=== PATIENT | male | born 1945 ===

== ENCOUNTER 2017-02-25 08:25 | Inpatient (IN) | payer MEDICARE, OTHER ==
[~2017-02-25] VITALS: Ht 170.2 cm; Wt 52.0 kg
[2017-02-25 08:41] VITALS: BP 112/68; PULSE 87; RESP 14; TEMP 97.6; O2SAT 96
[2017-02-25] MEDS ORDERED: SODIUM CHLOR 0.9% 1000 ML INJ 1,000 ML IV SCH (08:43)
[2017-02-25] MEDS ORDERED: SODIUM CHLORIDE 0.9% FLUSH 10 ML FLUSH IVF PRN (08:45)
[2017-02-25 09:41] LABS: EOSINOPHIL # 0.1 TH/MM3 (0-0.4); EOSINOPHIL % 3.1 % (0.0-4.0); HEMO FLAGS DIFF FINAL; LYMPH % 37.4 % (9.0-44.0); LYMPHOCYTE # 1.5 TH/MM3 (1.0-4.8); MEAN CORPUSCULAR HEMOGLOBIN 32.2 PG (27.0-34.0); MEAN CORPUSCULAR HGB CONC 32.9 % (32.0-36.0); MONO % 8.8 % (0.0-8.0); NEUT % 49.7 % (16.0-70.0); PLATELET COUNT 140 TH/MM3 (150-450); RED BLOOD COUNT 4.08 MIL/MM3 (4.50-5.90); RED CELL DISTRIBUTION WIDTH 12.8 % (11.6-17.2); WHITE BLOOD COUNT 4.1 TH/MM3 (4.0-11.0)
[2017-02-25 09:49] LABS: APTT (PATIENT) 25.7 SEC (24.3-30.1); INTERNATIONAL NORMALIZED RATIO 1.1 RATIO; PROTHROMBIN TIME - PATIENT 12.7 SEC (9.8-11.6)
--- NOTE | 2017-02-25 09:52 | RADRPT ---
EXAM DATE/TIME: 02/25/2017 09:24 [facility] COMPARISON: No previous studies available for comparison. INDICATIONS : Altered mental status. RADIATION DOSE: 56.37 CTDIvol (mGy) MEDICAL HISTORY : Non-responsive. SURGICAL HISTORY : Non-responsive. ENCOUNTER: Initial ACUITY: 1 day PAIN SCALE: Non-responsive LOCATION: cranial TECHNIQUE: Multiple contiguous axial images were obtained of the head. Using automated exposure control and adj ustment of the mA and/or kV according to patient size, radiation dose was kept as low as reasonably a chievable to obtain optimal diagnostic quality images. FINDINGS: CEREBRUM: There is diffuse moderate to severe atrophic change with sulcal and ventricular prominence. Periventr icular white matter lucencies are noted.. No evidence of midline shift, mass lesion, hemorrhage or a cute infarction. No extra-axial fluid collections are seen. POSTERIOR FOSSA: The cerebellum and brainstem are intact. The 4th ventricle is midline. The cerebellopontine angle i s unremarkable. EXTRACRANIAL: The visualized portion of the orbits is intact. SKULL: The calvaria is intact. No evidence of skull fracture. CONCLUSION: 1. No acute hemorrhage or mass effect. 2. Atrophy and chronic small vessel ischemic change. Sherif Gentile MD on February 25, 2017 at 9:49 Board Certified Radiologist. This report was verified electronically.
[2017-02-25 09:58] LABS: ANION GAP 8 MEQ/L (5-15); AST (GOT) 41 U/L (15-37); BICARBONATE 32.2 MEQ/L (21.0-32.0); BLOOD UREA NITROGEN 28 MG/DL (7-18); CHLORIDE 114 MEQ/L (98-107); GLOMERULAR FILTRATION RATE 89 ML/MIN (>89); POTASSIUM 3.9 MEQ/L (3.5-5.1); SODIUM (NA) 154 MEQ/L (136-145)
[2017-02-25 10:03] LABS: ALKALINE PHOSPHATASE 77 U/L (45-117); ALT (GPT) 31 U/L (12-78); CREATINE KINASE 391 U/L (39-308); TOTAL BILIRUBIN ADULT 0.5 MG/DL (0.2-1.0)
[2017-02-25 10:09] LABS: BACTERIA, URINE MANY /hpf; BLOOD, URINE SMALL (NEG); GLUCOSE,URINE NEG (NEG); HYALINE CAST, URINE 83 /lpf (RARE); KETONE, URINE NEG (NEG); MUCUS URINE MANY /lpf (OCC)
[2017-02-25 10:10] LABS: COMMENT (UR) CATH-CULTURE IND; CULTURE IF INDICATED CATH CULTURE IND; NITRITE,URINE POS (NEG); URINE COLOR BROWN (YELLW/STRAW)
[2017-02-25 10:16] LABS: CKMB 0.6 NG/ML (0.5-3.6)
--- NOTE | 2017-02-25 10:28 | RADRPT ---
EXAM DATE/TIME: 02/25/2017 09:34 [facility] COMPARISON: No previous studies available for comparison. INDICATIONS : Syncope. MEDICAL HISTORY : non-responsive SURGICAL HISTORY : non-responsive ENCOUNTER: Initial ACUITY: 1 day PAIN SCORE: Non-responsive. LOCATION: Bilateral chest FINDINGS: Underinflated AP view of the chest demonstrates a normal-sized cardiac silhouette. Patient is rotated . No effusion, consolidation, or pneumothorax is identified. Bones and soft tissues demonstrate no ac aj finding. EKG lines overlie the patient. CONCLUSION: Underinflated and rotated examination without an acute finding identified. Chuck Etienne MD on February 25, 2017 at 10:24 Board Certified Radiologist. This report was verified electronically.
[2017-02-25] MEDS ORDERED: cefTRIAXone INJ 1,000 MG in SODIUM CHLORIDE 0.9% INJ 100 ML IV ONE (10:45)
[2017-02-25 10:46] VITALS: BP_SYST 137; BP_SYST 142; BP_DIAS 83; BP_DIAS 90; PULSE 109; PULSE 110; RESP 14; TEMP 97.8; O2SAT 99
[2017-02-25] MEDS: D5-1/4 NS + KCL 20 MEQ INJ 1,000 ML IV SCH ×2 (12:13→23:51)
--- NOTE | 2017-02-25 13:00 | PD ---
HPI Chief Complaint: Altered Mental Status Time Seen by Provider: 08:38 Travel History International Travel<30 days: No Contact w/Intl Traveler<30days: No Traveled to known affect area: No History of Present Illness HPI 72 y/o male presents with report of change in mental status. History is obtained by the ambulance team. Patient cannot give me any history and has garbled speech. PFSH Past Medical History Narrative Medical By records Depression: Yes Dementia: Yes Insomnia: Yes Tetanus Vaccination: < 5 Years Influenza Vaccination: Yes Past Surgical History Surgical History: Unable to Obtain Social History Narrative Social History By records Alcohol Use: No Tobacco Use: No Substance Use: No Allergies-Medications (Allergen,Severity, Reaction): Coded Allergies: No Known Allergies (Unverified , 02/25/17) UNOBTAINABLE (Unverified , 02/25/17) Review of Systems ROS Limitations: Altered Mental Status Physical Exam Exam Limitations: Altered Mental Status Narrative GENERAL: Thin male SKIN: Warm and dry. HEAD: Normocephalic EYES: No injection or drainage. ENT: No nasal drainage noted. NECK: Supple, trachea midline. CARDIOVASCULAR: Regular rate and rhythm RESPIRATORY: No increased effort. No accessory muscle use. GASTROINTESTINAL: Abdomen soft, nondistended. NEUROLOGICAL: Eyes open to speech, garbled speech, contracted extremities Data Data Last Documented VS Vital Signs Date Time Temp Pulse Resp B/P Pulse Ox O2 Delivery O2 Flow Rate FiO2 02/25/17 10:46 108 14 99 Room Air 02/25/17 10:46 137/83 02/25/17 10:46 97.8 Orders Electrocardiogram (02/25/17 08:43) Ammonia (02/25/17 08:43) Complete Blood Count With Diff (02/25/17 08:43) Comprehensive Metabolic Panel (02/25/17 08:43) Creatine Kinase (Cpk) (02/25/17 08:43) Prothrombin Time / Inr (Pt) (02/25/17 08:43) Act Partial Throm Time (Ptt) (02/25/17 08:43) Troponin I (02/25/17 08:43) Lactic Acid Sepsis Protocol (02/25/17 08:43) Urinalysis - C+S If Indicated (02/25/17 08:43) Blood Culture (02/25/17 08:43) Chest, Single Ap (02/25/17 08:43) Ct Brain W/O Iv Contrast(Rout) (02/25/17 08:43) Blood Glucose (02/25/17 08:43) Ecg Monitoring (02/25/17 08:43) Iv Access Insert/Monitor (02/25/17 08:43) Oximetry (02/25/17 08:43) Urinary Catheter Insert/Apply (02/25/17 08:43) Sodium Chloride 0.9% Flush (Ns Flush) (02/25/17 08:45) Sodium Chlor 0.9% 1000 Ml Inj (Ns 1000 M (02/25/17 08:43) Valproic Acid (Depakene) (02/25/17 08:43) CKMB (02/25/17 08:50) CKMB% (02/25/17 08:50) Urine Culture (02/25/17 09:15) Ceftriaxone Inj (Rocephin Inj) (02/25/17 10:45) D5-1/4 Ns + Kcl 20 Meq Inj (D5-1/4 Ns + (02/25/17 12:00) Admit Order (Ed Use Only) (02/25/17 11:12) Labs Laboratory Tests Test 02/25/17 02/25/17 08:50 09:15 White Blood Count 4.1 TH/MM3 Red Blood Count 4.08 MIL/MM3 Hemoglobin 13.2 GM/DL Hematocrit 40.0 % Mean Corpuscular Volume 98.0 FL Mean Corpuscular Hemoglobin 32.2 PG Mean Corpuscular Hemoglobin 32.9 % Concent Red Cell Distribution Width 12.8 % Platelet Count 140 TH/MM3 Mean Platelet Volume 7.9 FL Neutrophils (%) (Auto) 49.7 % Lymphocytes (%) (Auto) 37.4 % Monocytes (%) (Auto) 8.8 % Eosinophils (%) (Auto) 3.1 % Basophils (%) (Auto) 1.0 % Neutrophils # (Auto) 2.0 TH/MM3 Lymphocytes # (Auto) 1.5 TH/MM3 Monocytes # (Auto) 0.4 TH/MM3 Eosinophils # (Auto) 0.1 TH/MM3 Basophils # (Auto) 0.0 TH/MM3 CBC Comment DIFF FINAL Differential Comment Prothrombin Time 12.7 SEC Prothromb Time International 1.1 RATIO Ratio Activated Partial 25.7 SEC Thromboplast Time Sodium Level 154 MEQ/L Potassium Level 3.9 MEQ/L Chloride Level 114 MEQ/L Carbon Dioxide Level 32.2 MEQ/L Anion Gap 8 MEQ/L Blood Urea Nitrogen 28 MG/DL Creatinine 0.85 MG/DL Estimat Glomerular Filtration 89 ML/MIN Rate Random Glucose 85 MG/DL Lactic Acid Level 1.7 mmol/L Calcium Level 8.3 MG/DL Total Bilirubin 0.5 MG/DL Aspartate Amino Transf 41 U/L (AST/SGOT) Alanine Aminotransferase 31 U/L (ALT/SGPT) Alkaline Phosphatase 77 U/L Ammonia 13 MCMOL/L Total Creatine Kinase 391 U/L Creatine Kinase MB 0.6 NG/ML Creatine Kinase MB % 0.2 % Troponin I LESS THAN 0.02 NG/ML Total Protein 7.3 GM/DL Albumin 2.7 GM/DL Valproic Acid (Depakene) Level 47 MCG/ML Urine Color BROWN Urine Turbidity TURBID Urine pH 7.0 Urine Specific [place] 1.022 Urine Protein 100 mg/dL Urine Glucose (UA) NEG mg/dL Urine Ketones NEG mg/dL Urine Occult Blood SMALL Urine Nitrite POS Urine Bilirubin NEG Urine Urobilinogen LESS THAN 2.0 MG/DL Urine Leukocyte Esterase LARGE Urine RBC /hpf Urine WBC /hpf Urine WBC Clumps MANY Urine Bacteria MANY /hpf Urine Hyaline Casts 83 /lpf Urine Mucus MANY /lpf Microscopic Urinalysis Comment CATH-CULTURE IND MDM Medical Decision Making Medical Screen Exam Complete: Yes Emergency Medical Condition: Yes Medical Record Reviewed: Yes (limited shelter records reviewed) Interpretation(s) CBC & BMP Diagram 02/25/17 08:50 Last [address] 02/25/17 0843 Signed Impressions: Service Date/Time: Saturday, February 25, 2017 09:24 - CONCLUSION: 1. No acute hemorrhage or mass effect. 2. Atrophy and chronic small vessel ischemic change. Sherif Gentile MD Chest X-Ray 02/25/1743 Signed Impressions: Service Date/Time: Saturday, February 25, 2017 09:34 - CONCLUSION: Underinflated and rotated examination without an acute finding identified. Chuck Etienne MD UA with UTI Differential Diagnosis UTI, intracranial, electrolyte, renal failure Narrative Course Will check blood work, urinalysis, imaging and reevaluate ED workup with UTI without signs of sepsis. Patient will be admitted and given Rocephin Physician Communication Physician Communication dr eugene agrees to admit Diagnosis Primary Impression: Urinary tract infection Qualified Code: N39.0 - Urinary tract infection with hematuria, site unspecified Additional Impression: Altered mental status Qualified Code: R41.82 - Altered mental status, unspecified altered mental status type Admitting Information Admitting Physician Requests: Admit Minda Cárdenas MD Feb 25, 2017 13:00
[2017-02-25 13:20] VITALS: BP 115/82; PULSE 101; RESP 16; O2SAT 96
--- NOTE | 2017-02-25 13:22 | EKG ---
Date Performed: 02/25/2017 Time Performed: 10:44:14 PTAGE: 72 years EKG: Sinus rhythm LEFT AXIS DEVIATION LOW QRS VOLTAGE ABNORMAL ECG NO PREVIOUS TRACING DOCTOR: Rubio Garcia Interpretating Date/Time 02/25/2017 13:20:53
[2017-02-25 14:30] VITALS: BP 139/78; PULSE 100; RESP 22; TEMP 97.6; O2SAT 96
[2017-02-25] MEDS ORDERED: ONDANSETRON HCL 4 MG/2 ML VIAL IVP PRN (14:30)
[2017-02-25] MEDS ORDERED: SODIUM CHLORIDE 0.9% FLUSH 10 ML FLUSH IV FLUSH PRN (14:30)
[2017-02-25] MEDS ORDERED: NALOXONE HCL 0.4 MG/ML AMP IV PRN (14:30)
--- NOTE | 2017-02-25 15:12 | HHI.HP ---
HPI Service [facility]ists Primary Care Physician Unknown Admission Diagnosis uti, altered mental status Diagnoses: Chief Complaint: AMS, SOB Travel History International Travel<30 Days: No Contact w/Intl Traveler <30 Da: No Traveled to Known Affected Are: No History of Present Illness Patient is non responsive and non interactive. History obtained from the patient's son and SNF staff. Per his son, he has a history of multiple strokes and alcoholic dementia. Patient has been living in a SNF. Apparently he has been declining for the past few weeks. Has been mostly bedbound. He is contracted. SNF discussed hospice with the patient's family and discussions were ongoing. Patient was sent to the hospital for low oxygen saturation and worsening mental status per the SNF staff. On arrival he is found to have an abnormal urinalysis suggestive of a UTI and severe Hypernatremia. Review of Systems ROS Limitations: Clinical Condition Unable to obtain. Past Family Social History Past Medical History Multiple strokes with residual cognitive deficit, weakness, contractures Alcoholic dementia Past Surgical History Unable to obtain Reported Medications Nursing facility to fax med list Allergies: Coded Allergies: No Known Allergies (Unverified , 02/25/17) UNOBTAINABLE (Unverified , 02/25/17) Family History Unable to obtain Social History Patient had a stroke in 2010 and has been drinking heavily. He has been declining over the past 15 months. Physical Exam Vital Signs Vital Signs Date Time Temp Pulse Resp B/P Pulse Ox O2 Delivery O2 Flow Rate FiO2 02/25/17 13:20 101 16 115/82 96 Room Air 02/25/17 10:46 108 14 99 Room Air 02/25/17 10:46 109 14 137/83 99 Room Air 02/25/17 10:46 97.8 110 14 142/90 99 Room Air 02/25/17 08:41 97.6 87 14 112/68 96 Physical Exam GENERAL: Elderly male, contracted, non interactive, non responsive. Eyes open but does not track. Does not respond to her daughter in the room HEAD: Atraumatic. Normocephalic. EYES: Pupils equal round and reactive. No injection or drainage. ENT: Nose without drainage NECK: Trachea midline. CARDIOVASCULAR: Regular rate and rhythm without murmurs, gallops, or rubs. RESPIRATORY: Clear to auscultation anteriorly. Breath sounds equal bilaterally. No wheezes, rales, or rhonchi. GASTROINTESTINAL: Abdomen soft, nondistended. MUSCULOSKELETAL: Paramjit upper extremity contracted. NEUROLOGICAL: Awake but non interactive. Laboratory Laboratory Tests Test 02/25/17 02/25/17 08:50 09:15 White Blood Count 4.1 Red Blood Count 4.08 Hemoglobin 13.2 Hematocrit 40.0 Mean Corpuscular Volume 98.0 Mean Corpuscular Hemoglobin 32.2 Mean Corpuscular Hemoglobin 32.9 Concent Red Cell Distribution Width 12.8 Platelet Count 140 Mean Platelet Volume 7.9 Neutrophils (%) (Auto) 49.7 Lymphocytes (%) (Auto) 37.4 Monocytes (%) (Auto) 8.8 Eosinophils (%) (Auto) 3.1 Basophils (%) (Auto) 1.0 Neutrophils # (Auto) 2.0 Lymphocytes # (Auto) 1.5 Monocytes # (Auto) 0.4 Eosinophils # (Auto) 0.1 Basophils # (Auto) 0.0 CBC Comment DIFF FINAL Differential Comment Prothrombin Time 12.7 Prothromb Time International 1.1 Ratio Activated Partial 25.7 Thromboplast Time Sodium Level 154 Potassium Level 3.9 Chloride Level 114 Carbon Dioxide Level 32.2 Anion Gap 8 Blood Urea Nitrogen 28 Creatinine 0.85 Estimat Glomerular Filtration 89 Rate Random Glucose 85 Lactic Acid Level 1.7 Calcium Level 8.3 Total Bilirubin 0.5 Aspartate Amino Transf 41 (AST/SGOT) Alanine Aminotransferase 31 (ALT/SGPT) Alkaline Phosphatase 77 Ammonia 13 Total Creatine Kinase 391 Creatine Kinase MB 0.6 Creatine Kinase MB % 0.2 Troponin I LESS THAN 0.02 Total Protein 7.3 Albumin 2.7 Valproic Acid (Depakene) Level 47 Urine Color BROWN Urine Turbidity TURBID Urine pH 7.0 Urine Specific [place] 1.022 Urine Protein 100 Urine Glucose (UA) NEG Urine Ketones NEG Urine Occult Blood SMALL Urine Nitrite POS Urine Bilirubin NEG Urine Urobilinogen LESS THAN 2.0 Urine Leukocyte Esterase LARGE Urine RBC Urine WBC Urine WBC Clumps MANY Urine Bacteria MANY Urine Hyaline Casts 83 Urine Mucus MANY Microscopic Urinalysis Comment CATH-CULTURE IND Date/Time Procedure Status Source Growth 02/25/17 09:15 Urine Culture Received Urine Catheterized Urine Pending 02/25/17 09:10 Aerobic Blood Culture Received Blood Peripheral Pending 02/25/17 09:10 Anaerobic Blood Culture Received Blood Peripheral Pending Result Diagram: 02/25/17 0850 02/25/1750 Imaging Last Impressions Head CT 02/25/17842 Signed Impressions: Service Date/Time: Saturday, February 25, 2017 09:24 - CONCLUSION: 1. No acute hemorrhage or mass effect. 2. Atrophy and chronic small vessel ischemic change. Sherif Gentile MD Chest X-Ray 02/25/17842 Signed Impressions: Service Date/Time: Saturday, February 25, 2017 09:34 - CONCLUSION: Underinflated and rotated examination without an acute finding identified. Chuck Etienne MD Assessment and Plan Problem List: (1) Encephalopathy acute ICD Code: G93.40 Status: Acute (2) Hypernatremia ICD Code: E87.0 Status: Acute (3) Urinary tract infection ICD Code: N39.0 Status: Acute (4) Dementia ICD Code: F03.90 Status: Acute Assessment and Plan 72 Y/O with dementia, previous strokes, mostly bedbound sent from the SNF for worsening/declining mental status. I discussed with the patient's son at length. The patient has been declining at the SNF. They were discussing hospice. He is now non interactive with marked hypernatremia and probable UTI. I suspect he has end stage dementia. The family does not want to pursue aggressive measures/treatment at this time. They want hospice closer to [facility] so family can visit him. - IVF with D5 1/4 NS to help with hypernatremia. Repeat labs in AM - Continue Rocephin for UTI - Hospice consulted. Patient's son is the healthcare surrogate. Patient is DNR per family request Discussed code status, Hospice at length with the patient's family. Anticipate discharge to Hospice once arrangements are made. Code Status DNR Physician Certification 2 Midnight Certification Type: Admission for Inpatient Services Order for Inpatient Services The services are ordered in accordance with Medicare regulations or non- Medicare payer requirements, as applicable. In the case of services not specified as inpatient-only, they are appropriately provided as inpatient services in accordance with the 2-midnight benchmark. Estimated LOS (days): 2 days is the estimated time the patient will need to remain in the hospital, assuming treatment plan goals are met and no additional complications. Post-Hospital Plan: Not yet determined Problem Qualifiers (1) Urinary tract infection: Qualified Code: N39.0 - Urinary tract infection with hematuria, site unspecified Madeline Boyd MD Feb 25, 2017 15:12
[2017-02-25 20:53] VITALS: BP 101/65; PULSE 102; RESP 18; TEMP 98.5; O2SAT 94
[2017-02-25] MEDS: SODIUM CHLORIDE 0.9% FLUSH 10 ML FLUSH IV FLUSH SCH (23:51)
[2017-02-26] VITALS: BP 128/76; PULSE 111; RESP 18; TEMP 98.3; O2SAT 95
[2017-02-26] MEDS: D5-1/4 NS + KCL 20 MEQ INJ 1,000 ML IV SCH ×3 (06:06→21:22)
[2017-02-26 06:11] VITALS: BP 123/74; PULSE 95; RESP 21; TEMP 97.6; O2SAT 96
[2017-02-26] MEDS: SODIUM CHLORIDE 0.9% FLUSH 10 ML FLUSH IV FLUSH SCH ×2 (07:45→21:00)
[2017-02-26 08:00] VITALS: BP 120/73; PULSE 99; RESP 21; TEMP 98; O2SAT 96
[2017-02-26 10:03] LABS: AUTOMATED NEUTROPHIL # 3.6 TH/MM3 (1.8-7.7); BASOPHIL % 0.8 % (0.0-2.0); EOSINOPHIL # 0.2 TH/MM3 (0-0.4); EOSINOPHIL % 2.6 % (0.0-4.0); HEMATOCRIT 39.2 % (39.0-51.0); HEMO FLAGS DIFF FINAL; LYMPH % 26.5 % (9.0-44.0); LYMPHOCYTE # 1.6 TH/MM3 (1.0-4.8); MEAN CELL VOLUME 97.7 FL (80.0-100.0); MEAN CORPUSCULAR HEMOGLOBIN 32.4 PG (27.0-34.0); MEAN CORPUSCULAR HGB CONC 33.2 % (32.0-36.0); MONO % 8.9 % (0.0-8.0); NEUT % 61.2 % (16.0-70.0); PLATELET COUNT 131 TH/MM3 (150-450); RED BLOOD COUNT 4.02 MIL/MM3 (4.50-5.90); RED CELL DISTRIBUTION WIDTH 12.4 % (11.6-17.2); WHITE BLOOD COUNT 5.9 TH/MM3 (4.0-11.0)
[2017-02-26 10:36] LABS: ALKALINE PHOSPHATASE 78 U/L (45-117); ALT (GPT) 30 U/L (12-78); ANION GAP 5 MEQ/L (5-15); AST (GOT) 43 U/L (15-37); BICARBONATE 28.7 MEQ/L (21.0-32.0); BLOOD UREA NITROGEN 19 MG/DL (7-18); CHLORIDE 113 MEQ/L (98-107); GLOMERULAR FILTRATION RATE 105 ML/MIN (>89); POTASSIUM 3.7 MEQ/L (3.5-5.1); SODIUM (NA) 147 MEQ/L (136-145); TOTAL BILIRUBIN ADULT 0.5 MG/DL (0.2-1.0)
[2017-02-26] MEDS: cefTRIAXone INJ 1,000 MG in SODIUM CHLORIDE 0.9% INJ 100 ML IV SCH (10:52)
--- NOTE | 2017-02-26 11:11 | HHI.PR ---
Subjective Remarks Follow-up UTI. He still remains encephalopathic moaning. Discussed with RN, tolerated diet. Discussed with case management, son to meet up with hospice Objective Vitals Vital Signs Date Time Temp Pulse Resp B/P Pulse Ox O2 Delivery O2 Flow Rate FiO2 02/26/17 08:00 98.0 99 21 120/73 96 02/26/17 06:11 97.6 95 21 123/74 96 02/26/17 00:00 98.3 111 18 128/76 95 02/25/17 20:53 98.5 102 18 101/65 94 02/25/17 14:30 97.6 100 22 139/78 96 02/25/17 13:20 101 16 115/82 96 Room Air I/O 02/25/17 02/25/17 02/25/17 02/26/17 02/26/17 02/26/17 07:00 15:00 23:00 07:00 15:00 23:00 Intake Total 357 ml 2008 ml Output Total 300 ml 200 ml Balance 57 ml -200 ml 2008 ml Intake IV Total 357 ml 2008 ml Output Urine Total 300 ml 200 ml # Bowel Movements 0 Result Diagram: 02/26/1734 02/26/1734 Imaging Last Impressions Head CT 02/25/1743 Signed Impressions: Service Date/Time: Saturday, February 25, 2017 09:24 - CONCLUSION: 1. No acute hemorrhage or mass effect. 2. Atrophy and chronic small vessel ischemic change. Sherif Gentile MD Chest X-Ray 02/25/1743 Signed Impressions: Service Date/Time: Saturday, February 25, 2017 09:34 - CONCLUSION: Underinflated and rotated examination without an acute finding identified. Chuck Etienne MD Objective Remarks GENERAL: Elderly male, contracted, non interactive, non responsive. Eyes open but does not track. HEAD: Atraumatic. Normocephalic. EYES: Pupils equal round and reactive. No injection or drainage. ENT: Nose without drainage NECK: Trachea midline. CARDIOVASCULAR: Regular rate and rhythm without murmurs, gallops, or rubs. RESPIRATORY: Clear to auscultation anteriorly. Breath sounds equal bilaterally. No wheezes, rales, or rhonchi. GASTROINTESTINAL: Abdomen soft, nondistended. MUSCULOSKELETAL: Paramjit upper extremity contracted. NEUROLOGICAL: Moaning non interactive. Procedures None A/P Problem List: (1) Encephalopathy acute ICD Code: G93.40 Status: Acute (2) Hypernatremia ICD Code: E87.0 Status: Acute (3) Urinary tract infection ICD Code: N39.0 Status: Acute (4) Dementia ICD Code: F03.90 Status: Chronic Assessment and Plan 72 Y/O with dementia, previous strokes, mostly bedbound sent from the SNF for worsening/declining mental status. The patient has been declining at the SNF. They were discussing hospice. He is now non interactive with marked hypernatremia and sepsis secondary to UTI. Suspect he has end stage dementia. The family does not want to pursue aggressive measures/treatment at this time. They want hospice closer to [facility] so family can visit him. - IVF with D5 1/4 NS to help with hypernatremia. Improving Repeat labs in AM - Continue Rocephin for UTI and sepsis. Gram-positive cocci in 1 out of 4 bottles. Follow-up blood cultures - Encephalopathy about the same secondary to above. History of CVA and alcoholic dementia - Hospice consulted. Patient's son is the healthcare surrogate. Patient is DNR per family request - DVT prophylaxis with heparin Discharge Planning dc to hospice when arranged Discharge patient to hospice Condition on discharge: Guarded Regular Diet as tolerated Ad Fabiola activity no driving Rx written: Per hospice Follow-up with primary care physician in one week Spent over 30 minutes with discharge planning and discussion with case management and RN and completion of required forms Problem Qualifiers (1) Urinary tract infection: Qualified Code: N39.0 - Urinary tract infection with hematuria, site unspecified Brady Cole MD Feb 26, 2017 11:11
--- NOTE | 2017-02-26 11:25 | HHI.DCPOC ---
Discharge Care Plan Diagnosis: (1) Urinary tract infection (2) Encephalopathy acute (3) Dementia (4) Hypernatremia Your Health Problems Are: Difficulty with ADL Exercise Tolerance Goals to Promote Your Health * To prevent worsening of your condition and complications * To maintain your health at the optimal level Directions to Meet Your Goals Take your medications as prescribed Follow your dietary instruction Follow activity as directed Keep your appointments as scheduled Take your immunizations and boosters as scheduled If your symptoms worsen call your PCP, if no PCP go to Urgent Care Center or Emergency Room Smoking is Dangerous to Your Health. Avoid second hand smoke Call the 24-hour hour crisis hotline for domestic abuse at Brady Cole MD Feb 26, 2017 11:24
[2017-02-26 12:00] VITALS: BP 111/66; PULSE 85; RESP 21; TEMP 97.9; O2SAT 95
[2017-02-26] MEDS: HEPARIN SODIUM - SQ 10,000 UNITS/ML VIAL SQ SCH ×2 (12:10→21:22)
[2017-02-26 16:00] VITALS: BP 111/50; PULSE 88; RESP 21; TEMP 98.8; O2SAT 98
[2017-02-26 20:30] VITALS: BP 115/65; PULSE 87; RESP 19; TEMP 98.2; O2SAT 98
[2017-02-27] VITALS: BP 120/65; PULSE 80; RESP 18; TEMP 98.1; O2SAT 97
[2017-02-27] MEDS: D5-1/4 NS + KCL 20 MEQ INJ 1,000 ML IV SCH ×2 (03:29→11:44)
[2017-02-27 04:00] VITALS: BP 118/64; PULSE 80; RESP 19; TEMP 97.7; O2SAT 96
[2017-02-27] MEDS: HEPARIN SODIUM - SQ 10,000 UNITS/ML VIAL SQ SCH ×3 (05:18→22:42)
[2017-02-27 07:44] LABS: BICARBONATE 24.5 MEQ/L (21.0-32.0); MAGNESIUM 1.9 MG/DL (1.5-2.5); POTASSIUM 3.6 MEQ/L (3.5-5.1)
[2017-02-27 08:00] VITALS: BP 111/68; PULSE 74; RESP 15; RESP 18; TEMP 96.7; O2SAT 96
[2017-02-27] MEDS: SODIUM CHLORIDE 0.9% FLUSH 10 ML FLUSH IV FLUSH SCH ×2 (08:37→21:00)
[2017-02-27] MEDS: cefTRIAXone INJ 1,000 MG in SODIUM CHLORIDE 0.9% INJ 100 ML IV SCH (10:41)
[2017-02-27 12:00] VITALS: BP 115/72; PULSE 105; RESP 19; TEMP 97.8; O2SAT 97
[2017-02-27] MEDS: D5-1/2 NS + KCL 20 MEQ INJ 1,000 ML IV SCH (15:30)
--- NOTE | 2017-02-27 15:31 | HHI.PR ---
Subjective Remarks Follow-up UTI. Patient more awake responding to his son's questions but difficult to understand. Discussed with RN and case management Objective Vitals Vital Signs Date Time Temp Pulse Resp B/P Pulse Ox O2 Delivery O2 Flow Rate FiO2 02/27/17 12:00 97.8 105 19 115/72 97 02/27/17 08:00 96.7 74 18 111/68 96 02/27/17 04:00 97.7 80 19 118/64 96 02/27/17 00:00 98.1 80 18 120/65 97 02/26/17 20:30 98.2 87 19 115/65 98 02/26/17 16:00 98.8 88 21 111/50 98 I/O 02/26/17 02/26/17 02/26/17 02/27/17 02/27/17 02/27/17 07:00 15:00 23:00 07:00 15:00 23:00 Intake Total 2268 ml 1550 ml 1600 ml Output Total 200 ml 300 ml 100 ml 500 ml 900 ml Balance -200 ml 1968 ml 1450 ml 1100 ml -900 ml Intake Oral 260 ml 550 ml 100 ml IV Total 2008 ml 1000 ml 1500 ml Output Urine Total 200 ml 300 ml 100 ml 500 ml 900 ml # Bowel Movements 0 1 0 0 Result Diagram: 02/26/17 0834 02/27/17 0624 Imaging Last Impressions Head CT 02/25/17842 Signed Impressions: Service Date/Time: Saturday, February 25, 2017 09:24 - CONCLUSION: 1. No acute hemorrhage or mass effect. 2. Atrophy and chronic small vessel ischemic change. Sherif Gentile MD Chest X-Ray 02/25/17842 Signed Impressions: Service Date/Time: Saturday, February 25, 2017 09:34 - CONCLUSION: Underinflated and rotated examination without an acute finding identified. Chuck Etienne MD Objective Remarks GENERAL: Elderly male, contracted, intermittently interactive. Eyes open but does not track. HEAD: Atraumatic. Normocephalic. EYES: Pupils equal round and reactive. No injection or drainage. ENT: Nose without drainage NECK: Trachea midline. CARDIOVASCULAR: Regular rate and rhythm without murmurs, gallops, or rubs. RESPIRATORY: Clear to auscultation anteriorly. Breath sounds equal bilaterally. No wheezes, rales, or rhonchi. GASTROINTESTINAL: Abdomen soft, nondistended. MUSCULOSKELETAL: Paramjit upper extremity contracted. NEUROLOGICAL: Moaning Procedures None A/P Problem List: (1) Encephalopathy acute ICD Code: G93.40 Status: Acute (2) Hypernatremia ICD Code: E87.0 Status: Acute (3) Urinary tract infection ICD Code: N39.0 Status: Acute (4) Dementia ICD Code: F03.90 Status: Chronic Assessment and Plan 72 Y/O with dementia, previous strokes, mostly bedbound sent from the SNF for worsening/declining mental status. The patient has been declining at the SNF. They were discussing hospice. He is now mini mentally interactive with marked hypernatremia and sepsis secondary to UTI. Suspect he has end stage dementia. The son wants to pursue aggressive measures/treatment at this time so rest of family can come and see him. [facility]. - Improving hypernatremia will switch to D5 1 half NS IVF - Continue Rocephin for UTI and sepsis. Gram-positive cocci in 1 aerobic and coag-negative in one anaerobic. Bacteremia versus contamination. Repeat blood cultures 2 today. - Encephalopathy about the same secondary to above. History of CVA and alcoholic dementia. Improving mental status according to the son he is close to baseline - Hospice consulted. Patient's son is the healthcare surrogate. Patient is DNR per family request - DVT prophylaxis with heparin Discharge Planning dc in 1-2 days. Hospice to follow Problem Qualifiers (1) Urinary tract infection: Qualified Code: N39.0 - Urinary tract infection with hematuria, site unspecified Brady Cole MD Feb 27, 2017 15:31
[2017-02-27 16:00] VITALS: BP 123/83; PULSE 113; RESP 20; TEMP 98.6; O2SAT 97
[2017-02-27 21:45] VITALS: BP 120/60; PULSE 100; RESP 19; TEMP 98; O2SAT 97
[2017-02-28 00:30] VITALS: BP 115/64; PULSE 80; RESP 19; TEMP 97.4; O2SAT 96
[2017-02-28 05:00] VITALS: BP 128/68; PULSE 80; RESP 17; TEMP 98; O2SAT 96
[2017-02-28] MEDS: HEPARIN SODIUM - SQ 10,000 UNITS/ML VIAL SQ SCH ×2 (05:19→13:33)
[2017-02-28] MEDS: SODIUM CHLORIDE 0.9% FLUSH 10 ML FLUSH IV FLUSH SCH (08:48)
[2017-02-28 08:59] VITALS: BP 129/70; PULSE 90; RESP 16; TEMP 97.4; O2SAT 97
[2017-02-28] MEDS: cefTRIAXone INJ 1,000 MG in SODIUM CHLORIDE 0.9% INJ 100 ML IV SCH (10:06)
--- NOTE | 2017-02-28 12:32 | HHI.PR ---
Subjective Remarks Follow-up encephalopathy and UTI. More arousable tries to answer but speech is not clear. Discussed with microbiology, coag-negative in one aerobic and anaerobic bottles likely contaminants. Repeat blood cultures negative to date. Discussed with RN and case finisher Objective Vitals Vital Signs Date Time Temp Pulse Resp B/P Pulse Ox O2 Delivery O2 Flow Rate FiO2 02/28/17 08:59 97.4 90 16 129/70 97 02/28/17 05:00 98.0 80 17 128/68 96 02/28/17 00:30 97.4 80 19 115/64 96 02/27/17 21:45 98.0 100 19 120/60 97 02/27/17 16:00 98.6 113 20 123/83 97 I/O 02/27/17 02/27/17 02/27/17 02/28/17 02/28/17 02/28/17 07:00 15:00 23:00 07:00 15:00 23:00 Intake Total 1600 ml 480 ml 0 ml 0 ml Output Total 500 ml 1550 ml 500 ml 400 ml Balance 1100 ml -1070 ml -500 ml -400 ml Intake Oral 100 ml 480 ml 0 ml 0 ml IV Total 1500 ml Output Urine Total 500 ml 1550 ml 500 ml 400 ml # Bowel Movements 0 1 1 3 Result Diagram: 02/26/17 0834 02/27/1724 Imaging Last Impressions Head CT 02/25/17842 Signed Impressions: Service Date/Time: Saturday, February 25, 2017 09:24 - CONCLUSION: 1. No acute hemorrhage or mass effect. 2. Atrophy and chronic small vessel ischemic change. Sherif Gentile MD Chest X-Ray 02/25/17842 Signed Impressions: Service Date/Time: Saturday, February 25, 2017 09:34 - CONCLUSION: Underinflated and rotated examination without an acute finding identified. Chuck Etienne MD Objective Remarks GENERAL: Elderly male, contracted, intermittently interactive. Eyes open but does not track. HEAD: Atraumatic. Normocephalic. EYES: Pupils equal round and reactive. No injection or drainage. ENT: Nose without drainage NECK: Trachea midline. CARDIOVASCULAR: Regular rate and rhythm without murmurs, gallops, or rubs. RESPIRATORY: Clear to auscultation anteriorly. Breath sounds equal bilaterally. No wheezes, rales, or rhonchi. GASTROINTESTINAL: Abdomen soft, nondistended. MUSCULOSKELETAL: Paramjit upper extremity contracted. NEUROLOGICAL: More awake and tries to answer but speech not clear Procedures None A/P Problem List: (1) Encephalopathy acute ICD Code: G93.40 Status: Acute (2) Hypernatremia ICD Code: E87.0 Status: Acute (3) Urinary tract infection ICD Code: N39.0 Status: Acute (4) Dementia ICD Code: F03.90 Status: Chronic Assessment and Plan 72 Y/O with dementia, previous strokes, mostly bedbound sent from the SNF for worsening/declining mental status. The patient has been declining at the SNF. They were discussing hospice. He is now mini mentally interactive with marked hypernatremia and sepsis secondary to UTI. Suspect he has end stage dementia. The son wants to pursue aggressive measures/treatment at this time so rest of family can come and see him. They want hospice closer to [facility] so family can visit him. - Improving hypernatremia will switch to D5 1 half NS IVF - Continue Rocephin for UTI and sepsis. Gram-positive cocci in 1 aerobic and coag-negative in one anaerobic likely contamination. Repeat blood cultures 2 negative to date. - Encephalopathy about the same secondary to above. History of CVA and alcoholic dementia. Improving mental status according to the son he is close to baseline - Hospice consulted. Patient's son is the healthcare surrogate. Patient is DNR per family request - DVT prophylaxis with heparin Discharge Planning Discharged to hospice Problem Qualifiers (1) Urinary tract infection: Qualified Code: N39.0 - Urinary tract infection with hematuria, site unspecified Brady Cole MD Feb 28, 2017 12:32
[2017-02-28] MEDS ORDERED: CEFT250T8 PO (12:37)
[2017-02-28 12:41] VITALS: BP 112/73; PULSE 103; RESP 18; TEMP 97; O2SAT 96
--- NOTE | 2017-02-28 15:05 | HHI.DS ---
Discharge Summary Admission Date Feb 25, 2017 at 11:14 Discharge Date: Feb 28, 2017 Admitting Diagnosis uti, altered mental status (1) Encephalopathy acute ICD Code: G93.40 Diagnosis: Principal (2) Hypernatremia ICD Code: E87.0 Diagnosis: Principal (3) Urinary tract infection ICD Code: N39.0 Diagnosis: Principal (4) Dementia ICD Code: F03.90 Diagnosis: Principal Procedures None Brief History - From Admission Patient is non responsive and non interactive. History obtained from the patient's son and SNF staff. Per his son, he has a history of multiple strokes and alcoholic dementia. Patient has been living in a SNF. Apparently he has been declining for the past few weeks. Has been mostly bedbound. He is contracted. SNF discussed hospice with the patient's family and discussions were ongoing. Patient was sent to the hospital for low oxygen saturation and worsening mental status per the SNF staff. On arrival he is found to have an abnormal urinalysis suggestive of a UTI and severe Hypernatremia. CBC/BMP: 02/26/17 0834 02/27/17 0624 Significant Findings Laboratory Tests Test 02/26/17 02/27/17 08:34 06:24 Red Blood Count 4.02 MIL/MM3 (4.50-5.90) Platelet Count 131 TH/MM3 (150-450) Monocytes (%) (Auto) 8.9 % (0.0-8.0) Sodium Level 147 MEQ/L (136-145) Chloride Level 113 MEQ/L (98-107) Blood Urea Nitrogen 19 MG/DL (7-18) Aspartate Amino Transf 43 U/L (15-37) (AST/SGOT) Albumin 2.6 GM/DL (3.4-5.0) Creatinine 0.53 MG/DL (0.60-1.30) Random Glucose 107 MG/DL (74-106) Calcium Level 8.4 MG/DL (8.5-10.1) Imaging Last Impressions Head CT 02/25/17 0843 Signed Impressions: Service Date/Time: Saturday, February 25, 2017 09:24 - CONCLUSION: 1. No acute hemorrhage or mass effect. 2. Atrophy and chronic small vessel ischemic change. Sherif Gentile MD Chest X-Ray 02/25/17 0843 Signed Impressions: Service Date/Time: Saturday, February 25, 2017 09:34 - CONCLUSION: Underinflated and rotated examination without an acute finding identified. Chuck Etienne MD PE at Discharge GENERAL: Elderly male, contracted, intermittently interactive. Eyes open but does not track. HEAD: Atraumatic. Normocephalic. EYES: Pupils equal round and reactive. No injection or drainage. ENT: Nose without drainage NECK: Trachea midline. CARDIOVASCULAR: Regular rate and rhythm without murmurs, gallops, or rubs. RESPIRATORY: Clear to auscultation anteriorly. Breath sounds equal bilaterally. No wheezes, rales, or rhonchi. GASTROINTESTINAL: Abdomen soft, nondistended. MUSCULOSKELETAL: Paramjit upper extremity contracted. NEUROLOGICAL: More awake and tries to answer but speech not clear Hospital Course 72 Y/O with dementia, previous strokes, mostly bedbound sent from the SNF for worsening/declining mental status. The patient has been declining at the SNF. They were discussing hospice. He is now mini mentally interactive with marked hypernatremia and sepsis secondary to UTI. Suspect he has end stage dementia. The son wants to pursue aggressive measures/treatment at this time so rest of family can come and see him. They want hospice closer to [facility] so family can visit him. - Improving hypernatremia will switch to D5 1 half NS IVF - Continue Rocephin for UTI and sepsis. Gram-positive cocci in 1 aerobic and coag-negative in one anaerobic likely contamination. Repeat blood cultures 2 negative to date. - Encephalopathy about the same secondary to above. History of CVA and alcoholic dementia. Improving mental status according to the son he is close to baseline - Hospice consulted. Patient's son is the healthcare surrogate. Patient is DNR per family request - DVT prophylaxis with heparin Pt Condition on Discharge: Stable Discharge Disposition: Hospice/Med Facility Discharge Time: > 30 minutes Discharge Instructions DIET: Follow Instructions for: As Tolerated, No Restrictions Activities you can perform: Regular-No Restrictions Activities to Avoid: Driving Follow up Referrals: Appointment for Follow Up - Today with hospice PCP Follow-up - 1 Week New Medications: Cefuroxime (Ceftin) 250 Mg Tab 250 MG PO BID Infection #8 Ref 0 TAB Brady Cole MD Feb 28, 2017 15:05
[2017-02-28] MEDS: D5-1/2 NS + KCL 20 MEQ INJ 1,000 ML IV SCH (15:44)
== END 2017-02-28 17:07 | disposition hospice, inpatient (51) | DRG 871 ==
LOC: NEPC 08:25 → NEDA 11:14 → N05A 16:15
PROVIDERS: ADMIT Internal Medicine; ATTEND Internal Medicine
DX: A41.9 Sepsis, unspecified organism (principal); G93.40 Encephalopathy, unspecified; E87.0 Hyperosmolality and hypernatremia; N39.0 Urinary tract infection, site not specified; F10.97 Alcohol use, unspecified with alcohol-induced persisting dementia; Z66 Do not resuscitate; Z86.73 Personal history of transient ischemic attack (TIA), and cerebral infarction without residual deficits; Z74.01 Bed confinement status; M24.50 Contracture, unspecified joint; Z51.5 Encounter for palliative care
CPT/HCPCS: 51702; 70450; 71010; 80048; 80053; 80164; 81001; 82140; 82550; 82552; 83605; 83735; 84484; 85025; 85610; 85730; 86403; 87040; 87077; 87086; 87186; 87205; 93005; 96361; 96365; J0696; J1644; J3480; J7030